=== PATIENT | female | born 1990 | race African-American/Black ===

== ENCOUNTER 2024-08-25 13:13 | Emergency (ER) | payer MEDICAID, OTHER ==
[~2024-08-25] VITALS: Ht 170.2 cm; Wt 76.0 kg
[2024-08-25 13:43] VITALS: O2SAT 100
[2024-08-25] MEDS ORDERED: AMOX1TAB16 MT (18:15)
[2024-08-25] MEDS ORDERED: ACET-2708 MT (18:16)
[2024-08-25 18:50] VITALS: BP 130/70; PULSE 68; RESP 18; TEMP 36.50292; O2SAT 100
== END 2024-08-25 18:54 | disposition home or self-care (01) ==
LOC: ER 13:55
DX: K04.7 Periapical abscess without sinus (principal); F19.90 Other psychoactive substance use, unspecified, uncomplicated
CPT/HCPCS: 99283